=== PATIENT | female | born 1970 | race Caucasian/White ===

== ENCOUNTER 2017-12-30 21:10 | Inpatient (IN) | payer MEDICAID ==
[~2017-12-30] VITALS: Ht 152.4 cm; Wt 89.3 kg
[2017-12-30 21:16] VITALS: Ht 152.4 cm; Wt 89.3 kg
[2017-12-30 23:30] LABS: BASOPHIL % 0.8 % (0-2); PLATELET COUNT 225 x10^3mcL (130-400); RED CELL DISTRIBUTION WIDTH 12.9 % (11.5-14.5)
[2017-12-30 23:34] LABS: CALCIUM 8.7 mg/dL (8.5-10.1); CHLORIDE SERUM 101 mmol/L (98-107); CREATININE SERUM 0.7 mg/dL (0.6-1.0); GFR1 > 60 mL/min; GLUCOSE SERUM 251 mg/dL (74-106); POTASSIUM SERUM 3.1 mmol/L (3.5-5.1); SODIUM SERUM 136 mmol/L (136-145)
[2017-12-31] MEDS ORDERED: METFORMIN500 M1 (02:36)
[2017-12-31 03:45] VITALS: BP 115/58
[2017-12-31 03:46] LABS: MAGNESIUM 1.6 mg/dL (1.8-2.4); PHOSPHOROUS 2.5 mg/dL (2.5-4.9)
[2017-12-31 03:50] LABS: UA SPECIFIC GRAVITY <=1.005 (1.005-1.035); microscopic required? YES; urine erythrocyte 1+ (NEGATIVE)
[2017-12-31 03:59] LABS: AMPHETAMINE QUAL UR NONE DETECTED (NEG <=1000)
[2017-12-31 04:14] LABS: T3 TOTAL 1.61 ng/mL
[2017-12-31 04:21] LABS: FREE T4 1.32 ng/dL (0.76-1.46); FREE THYROXINE INDEX 3.8 ug/dL (1.4-4.5); T4(THYROXINE) 10.6 ug/dL (4.7-13.3)
[2017-12-31 05:50] VITALS: BP 103/51
[2017-12-31 06:34] LABS: CALCIUM 7.9 mg/dL (8.5-10.1); CARBON DIOXIDE 24.4 mmol/L (21-32); CHLORIDE SERUM 106 mmol/L (98-107); CREATININE SERUM 0.8 mg/dL (0.6-1.0); GFR1 > 60 mL/min; GLUCOSE SERUM 237 mg/dL (74-106); SODIUM SERUM 140 mmol/L (136-145)
[2017-12-31 08:21] LABS: BASOPHIL % 0 % (0-2); PLATELET COUNT 200 x10^3mcL (130-400); RED CELL DISTRIBUTION WIDTH 13.4 % (11.5-14.5)
[2017-12-31 09:24] VITALS: BP 93/41
[2017-12-31 12:21] VITALS: BP 103/44
[2017-12-31 17:13] VITALS: BP 126/69
[2017-12-31 20:11] VITALS: BP 110/61
[2018-01-01 05:25] VITALS: BP 113/63
[2018-01-01 06:52] LABS: CALCIUM 8.3 mg/dL (8.5-10.1); CARBON DIOXIDE 24.6 mmol/L (21-32); CHLORIDE SERUM 111 mmol/L (98-107); CREATININE SERUM 0.6 mg/dL (0.6-1.0); GFR1 > 60 mL/min; GLUCOSE SERUM 153 mg/dL (74-106); MAGNESIUM 1.8 mg/dL (1.8-2.4); PHOSPHOROUS 2.9 mg/dL (2.5-4.9); POTASSIUM SERUM 3.8 mmol/L (3.5-5.1); SODIUM SERUM 145 mmol/L (136-145)
[2018-01-01 06:56] LABS: BASOPHIL % 0.3 % (0-2); PLATELET COUNT 199 x10^3mcL (130-400); RED CELL DISTRIBUTION WIDTH 13.8 % (11.5-14.5)
[2018-01-01] MEDS ORDERED: ZITHROMAX250 MG PO (09:10)
[2018-01-01] MEDS ORDERED: LAC PO (09:12)
[2018-01-01] MEDS ORDERED: PYR100 PO (09:13)
[2018-01-01 09:20] VITALS: BP 113/58
[2018-01-01 12:17] VITALS: BP 113/58
== END 2018-01-01 13:12 | disposition home or self-care (01) | DRG 720 ==
LOC: ED 21:10 → DU 12-31 02:40
PROVIDERS: Emergency Medicine; Family Medicine
DX: A41.9 Sepsis, unspecified organism (principal); J18.9 Pneumonia, unspecified organism; E44.0 Moderate protein-calorie malnutrition; E11.65 Type 2 diabetes mellitus with hyperglycemia; E11.9 Type 2 diabetes mellitus without complications; N39.0 Urinary tract infection, site not specified; E66.9 Obesity, unspecified; Z68.38 Body mass index [BMI] 38.0-38.9, adult; E87.6 Hypokalemia; E78.5 Hyperlipidemia, unspecified; E83.42 Hypomagnesemia; R31.9 Hematuria, unspecified
CPT/HCPCS: 82962; 83880; 84439; 85378; J0456; J0696; J1815; J1885; J2405; J7030; J7050; J7620; Q0092; Q9967

== ENCOUNTER 2018-11-17 19:16 | Inpatient (IN) | payer MEDICAID ==
[~2018-11-17] VITALS: Ht 154.9 cm; Wt 90.7 kg
[~2018-11-17 19:16] MED LIST: LAC PO; METFORMIN500 M1 PO; PYR100 PO; ZITHROMAX250 MG PO
[2018-11-17 19:21] VITALS: Ht 154.9 cm; Wt 90.7 kg
[2018-11-17 20:07] LABS: UA SPECIFIC GRAVITY >=1.030 (1.005-1.035); microscopic required? YES; urine erythrocyte 3+ (NEGATIVE)
[2018-11-17 20:07] LABS: BASOPHIL % 0.2 % (0-2); PLATELET COUNT 282 x10^3mcL (130-400); RED CELL DISTRIBUTION WIDTH 13.8 % (11.5-14.5)
[2018-11-17 20:29] LABS: CARBON DIOXIDE 26.4 mmol/L (21-32); CHLORIDE SERUM 100 mmol/L (98-107); CREATININE SERUM 0.8 mg/dL (0.6-1.0); GFR1 > 60 mL/min; GLUCOSE SERUM 242 mg/dL (74-106); POTASSIUM SERUM 3.6 mmol/L (3.5-5.1); SODIUM SERUM 136 mmol/L (136-145)
[2018-11-17 20:32] LABS: ALBUMIN 3.5 g/dL (3.4-5.0); ALKALINE PHOSPHATASE 192 U/L (46-116); ALT/SGPT 51 U/L (14-59); AST/SGOT 33 U/L (15-37); BILIRUBIN TOTAL 0.4 mg/dL (0.20-1.00); LIPASE 120 IU/L (73-393); TOTAL PROTEIN, SERUM 7.7 g/dL (6.4-8.2)
--- NOTE | 2018-11-17 20:56 | NUR ---
PATIENT SEENM WITH COMPLAINT OF RIGHT FLANK/RLQ ABDOMINAL PAIN. PAIN IS THROBBING SCALE 91/0. PATIENT WAS SEEN BY MD. 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 ABDOMINAL ULTRA SOUND WAS DONE. SALINE LOCK INSERTED AND FLUID BOLUS IS INFUSING. PATIENT MEDICATED WITH ZOFRAN AND TORADOL.
--- NOTE | 2018-11-17 22:28 | NUR ---
PATTIENT WENT FOR CT SCAN.
--- NOTE | 2018-11-18 00:22 | NUR ---
REPORT WAS GIVEN TO NABIL. PATIENT TRANSPORTED TO ROOM 204B.
[2018-11-18 00:30] LABS: T3 TOTAL 1.45 ng/mL
[2018-11-18 00:34] LABS: MAGNESIUM 1.6 mg/dL (1.8-2.4); PHOSPHOROUS 3.2 mg/dL (2.5-4.9)
[2018-11-18 00:35] LABS: CHOLESTEROL/HDL RATIO 2.8; FREE T4 1.09 ng/dL (0.76-1.46); FREE THYROXINE INDEX 2.5 ug/dL (1.4-4.5); T4(THYROXINE) 7.8 ug/dL (4.7-13.3)
--- NOTE | 2018-11-18 01:01 | NUR ---
PATIENT TRANSPORTED TO ROOM 204
[2018-11-18 01:15] VITALS: BP 104/54
--- NOTE | 2018-11-18 01:15 | NUR ---
RECEIVED PT VIA [facility] FROM E/D, ACCOMPANIED BY RN, TRANSPORTER, AND FAMILY FRIEND. PT A/A/O X 4, CALM, COOPERATIVE. PT AMBULATORY, ABLE TO AMBULATE FROM [facility] TO BED WITHOUT GAIT OR BALANCE IMPAIRMENT. ON TELE # 21, SB, HR 53, DENIES CHEST PAIN OR DISCOMFORT AT THIS TIME. NO ACUTE RESPIRATORY DISTRESS NOTED. ABD SOFT, ROUND, NON-TENDER, NORMOACTIVE BOWEL SOUNDS X 4 QUADS, LAST BM 11/17/18, LOOSE, +NAUSEA, INTERMITTENT SHARP ABD PAIN RADIATING TO BACK 10, EXACERBATED BY MOVEMENT AND WALKING, RELIEVED BY REST AND PAIN MEDICATIONS. VOIDS FREELY, DENIES DYSURIA. IV SITE LAC 20G, CDI. ORIENTED PT AND FAMILY FRIEND TO ROOM, BED CONTROLS, CALL LIGHT SYSTEM. SIDE RAILS UP X 2, BED IN LOW POSITION. WILL ENDORSE TO [facility]AD[facility]ERRER.
[2018-11-18] MEDS ORDERED: JANUVIA100 M1 PO (01:46)
--- NOTE | 2018-11-18 03:33 | NUR ---
PT RESTING IN BED WITH EYES CLOSED. NO FACIAL GRIMMACING OR ACUTE SIGNS OF DISTRESS. NO LABORED BREATHING OR USE OF ACCESSORY MUSCLES. FAMILY AT BEDSIDE. SAFETY MEASURES IN PLACE. WILL CONTINUE TO MONITOR.
--- NOTE | 2018-11-18 05:11 | NUR ---
PT SLEPT FOR THE REMAINDER OF SHIFT WITH FAMILY AT THE BEDSIDE. PT DENIED CHEST PAIN OR SHORTNESS OF BREATH AND STATED HER PAIN WAS MANAGABLE. NO USE OF ACCESSORY MUSCLES OR LABORED BREATHING ON ASSESSMENT. PT TOLERATED MEDICATIONS WILL. SAFETY MEASURES IN PLACE. CALL LIGHT WITHIN REACH. WILL ENDORSE TO DAY SHIFT RN.
[2018-11-18 05:59] VITALS: BP 102/51
[2018-11-18 06:56] LABS: CALCIUM 8.2 mg/dL (8.5-10.1); CARBON DIOXIDE 25.3 mmol/L (21-32); CHLORIDE SERUM 107 mmol/L (98-107); CREATININE SERUM 0.5 mg/dL (0.6-1.0); GFR1 > 60 mL/min; GLUCOSE SERUM 170 mg/dL (74-106); MAGNESIUM 1.6 mg/dL (1.8-2.4); POTASSIUM SERUM 3.5 mmol/L (3.5-5.1); SODIUM SERUM 141 mmol/L (136-145)
[2018-11-18 07:02] LABS: BASOPHIL % 0.4 % (0-2); PLATELET COUNT 226 x10^3mcL (130-400); RED CELL DISTRIBUTION WIDTH 13.9 % (11.5-14.5)
[2018-11-18 07:41] VITALS: BP 111/57
--- NOTE | 2018-11-18 08:00 | NUR ---
ALERT AND ORIENTED. SITTING UP FOR BREAKFAST. BREATHING FREELY ON RA. NS INFUSING 150 CC HOUR TO RT AC. DRIED BLOOD NOTED TO IV SITE. UPPER RIGHT ABD PAIN 3/10, PRESSURE. DENIES NEED FOR PAIN MED. INDEPENDENT W ADL'S. BRP. CALL LIGHT WITHIN REACH.
[2018-11-18 10:11] VITALS: BP 111/57
[2018-11-18 11:10] VITALS: BP 120/45
[2018-11-18] MEDS ORDERED: KEFLEX500 M1 PO (11:17)
[2018-11-18] MEDS ORDERED: LAC PO (11:17)
[2018-11-18] MEDS ORDERED: FLO4 PO (11:18)
--- NOTE | 2018-11-18 11:37 | NUR ---
PT GOING HOME TODAY. STOPPED IV FLUIDS, RETURNED TELE # 21 TO TELE STATION.
--- NOTE | 2018-11-18 15:29 | NUR ---
ALL DC INSTRUCTIONS REVIEWEWD WITH PT AND HER DTR MIKKI. F/U PUJA MADE FOR PCP. PT IS ALSO TO F/U AT [facility]. PACKET GIVEN. PRESCRIPTIONS GIVEN. ALL DC INSTRUCTIONS SIGNED BY PT.
== END 2018-11-18 15:40 | disposition home or self-care (01) | DRG 463 ==
LOC: ED 19:16 → DU 23:46
PROVIDERS: Emergency Medicine; ADMIT Family Medicine
DX: N39.0 Urinary tract infection, site not specified (principal); N17.0 Acute kidney failure with tubular necrosis; N13.2 Hydronephrosis with renal and ureteral calculous obstruction; E11.65 Type 2 diabetes mellitus with hyperglycemia; I10 Essential (primary) hypertension; E83.42 Hypomagnesemia; R80.9 Proteinuria, unspecified; R74.0 Nonspecific elevation of levels of transaminase and lactic acid dehydrogenase [LDH]; E78.5 Hyperlipidemia, unspecified; Z68.37 Body mass index [BMI] 37.0-37.9, adult; Z79.84 Long term (current) use of oral hypoglycemic drugs
CPT/HCPCS: 82962; 84439; J0696; J1885; J2405; J7030; Q0092

== ENCOUNTER 2019-07-11 13:23 | Inpatient (IN) | payer MEDICAID ==
[~2019-07-11] VITALS: Ht 154.9 cm; Wt 89.4 kg
[~2019-07-11 13:23] MED LIST changes: +FLO4 PO; +JANUVIA100 M1 PO; +KEFLEX500 M1 PO
[2019-07-11 14:20] LABS: BASOPHIL % 0.3 % (0-2); PLATELET COUNT 233 x10^3mcL (130-400); RED CELL DISTRIBUTION WIDTH 13.7 % (11.5-14.5)
[2019-07-11 14:43] LABS: CALCIUM 9.6 mg/dL (8.5-10.1); CARBON DIOXIDE 26.8 mmol/L (21-32); CHLORIDE SERUM 97 mmol/L (98-107); CREATININE SERUM 0.8 mg/dL (0.6-1.0); GFR1 > 60 mL/min; GLUCOSE SERUM 318 mg/dL (74-106); POTASSIUM SERUM 3.9 mmol/L (3.5-5.1); SODIUM SERUM 132 mmol/L (136-145)
[2019-07-11 14:47] LABS: ALBUMIN 3.6 g/dL (3.4-5.0); ALKALINE PHOSPHATASE 207 U/L (46-116); ALT/SGPT 44 U/L (14-59); AST/SGOT 17 U/L (15-37); BILIRUBIN TOTAL 1.14 mg/dL (0.20-1.00); LIPASE 78 IU/L (73-393)
[2019-07-11 14:48] LABS: TOTAL PROTEIN, SERUM 8.5 g/dL (6.4-8.2)
[2019-07-11] MEDS ORDERED: METFORMIN HYDR500 M1 PO (18:24)
[2019-07-11 19:08] LABS: UA SPECIFIC GRAVITY 1.025 (1.005-1.035); microscopic required? YES; urine erythrocyte 2+ (NEGATIVE)
[2019-07-11 19:34] VITALS: BP 117/78
[2019-07-11 20:08] LABS: FREE T4 1.21 ng/dL (0.76-1.46); T4(THYROXINE) 11.4 ug/dL (4.7-13.3)
[2019-07-11 20:09] LABS: T3 TOTAL 1.45 ng/mL
[2019-07-11 20:31] LABS: CHOLESTEROL/HDL RATIO 2.5
[2019-07-12 05:38] VITALS: BP 103/62
[2019-07-12 06:39] LABS: CALCIUM 9.3 mg/dL (8.5-10.1); CARBON DIOXIDE 29.6 mmol/L (21-32); CHLORIDE SERUM 102 mmol/L (98-107); CREATININE SERUM 0.8 mg/dL (0.6-1.0); GFR1 > 60 mL/min; GLUCOSE SERUM 272 mg/dL (74-106); MAGNESIUM 1.8 mg/dL (1.8-2.4); PHOSPHOROUS 2.8 mg/dL (2.5-4.9); POTASSIUM SERUM 4.1 mmol/L (3.5-5.1); SODIUM SERUM 139 mmol/L (136-145)
[2019-07-12 06:52] LABS: BASOPHIL % 0.3 % (0-2); PLATELET COUNT 208 x10^3mcL (130-400); RED CELL DISTRIBUTION WIDTH 13.7 % (11.5-14.5)
[2019-07-12 08:44] VITALS: BP 117/60
[2019-07-12 12:08] VITALS: BP 128/71
[2019-07-12 16:57] VITALS: BP 121/80
[2019-07-12 20:55] VITALS: BP 109/53
[2019-07-13 05:35] VITALS: BP 119/67
[2019-07-13 07:08] LABS: BASOPHIL % 0.4 % (0-2); PLATELET COUNT 216 x10^3mcL (130-400); RED CELL DISTRIBUTION WIDTH 13.7 % (11.5-14.5)
[2019-07-13 07:22] LABS: CALCIUM 8.8 mg/dL (8.5-10.1); CARBON DIOXIDE 27.4 mmol/L (21-32); CHLORIDE SERUM 104 mmol/L (98-107); CREATININE SERUM 0.6 mg/dL (0.6-1.0); GFR1 > 60 mL/min; GLUCOSE SERUM 172 mg/dL (74-106); POTASSIUM SERUM 4.2 mmol/L (3.5-5.1); SODIUM SERUM 140 mmol/L (136-145)
[2019-07-13 08:51] VITALS: BP 124/67
[2019-07-13] MEDS ORDERED: LEVAQUIN750 MG PO (10:30)
[2019-07-13 11:11] VITALS: BP 124/67
[2019-07-17 10:12] VITALS: Ht 154.9 cm; Wt 89.4 kg
== END 2019-07-13 13:59 | disposition home or self-care (01) | DRG 720 ==
LOC: ED 13:23 → MU 18:50
PROVIDERS: Emergency Medicine; ADMIT Internal Medicine
DX: A41.9 Sepsis, unspecified organism (principal); D68.69 Other thrombophilia; E87.8 Other disorders of electrolyte and fluid balance, not elsewhere classified; E11.65 Type 2 diabetes mellitus with hyperglycemia; E87.1 Hypo-osmolality and hyponatremia; E83.59 Other disorders of calcium metabolism; N10 Acute pyelonephritis; B96.20 Unspecified Escherichia coli [E. coli] as the cause of diseases classified elsewhere; I10 Essential (primary) hypertension; N29 Other disorders of kidney and ureter in diseases classified elsewhere; R74.0 Nonspecific elevation of levels of transaminase and lactic acid dehydrogenase [LDH]; Z68.37 Body mass index [BMI] 37.0-37.9, adult; Z79.84 Long term (current) use of oral hypoglycemic drugs; Z16.12 Extended spectrum beta lactamase (ESBL) resistance; Z16.24 Resistance to multiple antibiotics
CPT/HCPCS: 82962; 84439; G0378; J0696; J1815; J1885; J1956; J2405; J7030; J7050; Q0092

== ENCOUNTER 2019-07-17 15:59 | Emergency (ER) | payer MEDICAID ==
[~2019-07-17] VITALS: Ht 154.9 cm; Wt 89.4 kg
[~2019-07-17 15:59] MED LIST changes: +LEVAQUIN750 MG PO; +METFORMIN HYDR500 M1 PO
[2019-07-17 16:06] VITALS: BP 135/79; Ht 154.9 cm; Wt 89.4 kg
[2019-07-17 16:38] LABS: UA SPECIFIC GRAVITY 1.015 (1.005-1.035); microscopic required? YES; urine erythrocyte 2+ (NEGATIVE)
== END 2019-07-17 17:05 | disposition home or self-care (01) ==
LOC: ED 15:59
PROVIDERS: Emergency Medicine
DX: N39.0 Urinary tract infection, site not specified (principal); E11.9 Type 2 diabetes mellitus without complications

== ENCOUNTER 2019-07-20 19:34 | Emergency (ER) | payer MEDICAID ==
[~2019-07-20] VITALS: Ht 2.5 cm; Wt 90.3 kg
[2019-07-20 19:55] VITALS: BP 130/85; Ht 2.5 cm; Wt 90.3 kg
== END 2019-07-20 21:32 | disposition left against medical advice (07) ==
LOC: ED 19:34
DX: Z53.21 Procedure and treatment not carried out due to patient leaving prior to being seen by health care provider (principal)

== ENCOUNTER 2019-07-21 17:40 | Emergency (ER) | payer MEDICAID ==
[~2019-07-21] VITALS: Ht 154.9 cm; Wt 90.7 kg
[2019-07-21 17:53] VITALS: Ht 154.9 cm; Wt 90.7 kg
[2019-07-21 18:17] LABS: microscopic required? NO
[2019-07-21 18:23] LABS: BASOPHIL % 0.4 % (0-2); PLATELET COUNT 304 x10^3mcL (130-400); RED CELL DISTRIBUTION WIDTH 13.7 % (11.5-14.5)
[2019-07-21 18:24] LABS: CALCIUM 9.3 mg/dL (8.5-10.1); CARBON DIOXIDE 27.6 mmol/L (21-32); CHLORIDE SERUM 102 mmol/L (98-107); CREATININE SERUM 0.7 mg/dL (0.6-1.0); GFR1 > 60 mL/min; GLUCOSE SERUM 239 mg/dL (74-106); POTASSIUM SERUM 4.1 mmol/L (3.5-5.1); SODIUM SERUM 137 mmol/L (136-145)
[2019-07-21 18:30] LABS: ALBUMIN 3.4 g/dL (3.4-5.0); ALKALINE PHOSPHATASE 196 U/L (46-116); ALT/SGPT 45 U/L (14-59); AST/SGOT 23 U/L (15-37); BILIRUBIN TOTAL 0.32 mg/dL (0.20-1.00); LIPASE 263 IU/L (73-393); TOTAL PROTEIN, SERUM 7.5 g/dL (6.4-8.2)
[2019-07-21 18:33] LABS: urine erythrocyte NEGATIVE (NEGATIVE)
[2019-07-21 20:16] VITALS: BP 122/69
== END 2019-07-21 20:16 | disposition home or self-care (01) ==
LOC: ED 17:40
PROVIDERS: Emergency Medicine
DX: N39.0 Urinary tract infection, site not specified (principal); E11.9 Type 2 diabetes mellitus without complications; E66.9 Obesity, unspecified; Z68.37 Body mass index [BMI] 37.0-37.9, adult; Z98.890 Other specified postprocedural states
CPT/HCPCS: 36415

== ENCOUNTER 2019-08-01 10:54 | Emergency (ER) | payer MEDICAID ==
[~2019-08-01] VITALS: Ht 154.9 cm; Wt 89.8 kg
[2019-08-01 11:11] VITALS: Ht 154.9 cm; Wt 89.8 kg
[2019-08-01 14:58] LABS: BASOPHIL % 0.2 % (0-2); PLATELET COUNT 234 x10^3mcL (130-400); RED CELL DISTRIBUTION WIDTH 13.6 % (11.5-14.5)
[2019-08-01 15:14] LABS: UA SPECIFIC GRAVITY 1.015 (1.005-1.035); microscopic required? YES; urine erythrocyte TRACE (NEGATIVE)
[2019-08-01 15:22] LABS: CALCIUM 8.7 mg/dL (8.5-10.1); CARBON DIOXIDE 23.3 mmol/L (21-32); CHLORIDE SERUM 103 mmol/L (98-107); CREATININE SERUM 0.5 mg/dL (0.6-1.0); GFR1 > 60 mL/min; GLUCOSE SERUM 132 mg/dL (74-106); POTASSIUM SERUM 3.5 mmol/L (3.5-5.1); SODIUM SERUM 135 mmol/L (136-145)
[2019-08-01 15:28] LABS: ALBUMIN 3.2 g/dL (3.4-5.0); ALKALINE PHOSPHATASE 174 U/L (46-116); ALT/SGPT 30 U/L (14-59); AST/SGOT 21 U/L (15-37); BILIRUBIN TOTAL 0.61 mg/dL (0.20-1.00); LIPASE 138 IU/L (73-393); TOTAL PROTEIN, SERUM 7.2 g/dL (6.4-8.2)
[2019-08-01 15:58] VITALS: BP 103/47
== END 2019-08-01 15:09 | disposition home or self-care (01) ==
LOC: ED 10:54
PROVIDERS: Emergency Medicine
DX: R10.816 Epigastric abdominal tenderness (principal); R11.10 Vomiting, unspecified; R19.7 Diarrhea, unspecified; I10 Essential (primary) hypertension; E11.9 Type 2 diabetes mellitus without complications; Z87.448 Personal history of other diseases of urinary system; Z98.890 Other specified postprocedural states
CPT/HCPCS: 82962; 87804; J2405; J3490

== ENCOUNTER 2020-07-20 12:52 | Emergency (ER) | payer MEDICAID, SELFPAY ==
[~2020-07-20] VITALS: Ht 152.4 cm; Wt 86.2 kg
[2020-07-20 12:55] VITALS: BP 166/95; Ht 152.4 cm; Wt 86.2 kg
== END 2020-07-20 14:20 | disposition home or self-care (01) ==
LOC: ED 12:52
DX: U07.1 COVID-19 (principal); I10 Essential (primary) hypertension; E11.9 Type 2 diabetes mellitus without complications; Z98.890 Other specified postprocedural states
CPT/HCPCS: U0003

== ENCOUNTER 2020-09-11 09:15 | Emergency (ER) | payer MEDICAID ==
[~2020-09-11] VITALS: Ht 154.9 cm; Wt 88.5 kg
[2020-09-11 09:24] VITALS: Ht 154.9 cm; Wt 88.5 kg
[2020-09-11 10:15] VITALS: BP 141/70
== END 2020-09-11 11:09 | disposition home or self-care (01) ==
LOC: ED 09:15
DX: L25.9 Unspecified contact dermatitis, unspecified cause (principal); I10 Essential (primary) hypertension; E11.9 Type 2 diabetes mellitus without complications; Z98.890 Other specified postprocedural states